=== PATIENT | female | born 1945 | race Two or more races ===

== ENCOUNTER 2021-02-15 09:34 | Inpatient (IN) | payer MEDICARE ==
[~2021-02-15] VITALS: Ht 152.4 cm; Wt 62.6 kg
[~2021-02-15 09:34] MED LIST: ALPR0.254 PO; AMIT10TA8 PO; BACL10TA PO; FURO20TA3 PO; GABA-339 PO; LEVO88TA4 PO; MELO1TAB73 PO; MONT5CHW23 PO; VALS160T43 PO
[2021-02-15] MEDS ORDERED: ONDANSETRON HCL 4 MG/2 ML VIAL IV ONE (11:15)
[2021-02-15] MEDS ORDERED: MORPHINE SULFATE 4 MG/ML SYR/VIAL IV ONE (11:15)
[2021-02-15 12:06] LABS: Basophils # (auto) 0 10 ^3/uL (0-0.2); Basophils % (auto) 0.5 % (0.0-2.0); Eosinophils # (auto) 0.1 10 ^3/uL (0-0.8); Eosinophils % (auto) 0.8 % (0.0-7.0); Hematocrit 41.2 % (36.0-46.0); Hemoglobin 13.8 g/dL (12.2-16.2); Lymphocytes # (auto) 1.9 10 ^3/uL (0.4-5.4); Lymphocytes % (auto) 18.3 % (10.0-50.0); Mean Corpuscular Hemoglobin 32.2 pg (28.0-32.0); Mean Corpuscular Hgb Conc. 33.4 g/dL (32.0-36.0); Mean Corpuscular Volume 96.3 fL (80.0-100.0); Monocytes # (auto) 0.8 10 ^3/uL (0-1.3); Monocytes % (auto) 7.6 % (0.0-12.0); Neutrophils # (auto) 7.4 10 ^3/uL (1.6-8.6); Neutrophils % (auto) 72.8 % (37.0-80.0); Nucleated Red Blood Cells % 0.1 %; Red Blood Cells 4.28 10^6/uL (4.0-5.20); Red Cell Distribution Width 12.8 % (11.8-14.3); White Blood Cell 10.1 10^3/uL (4.4-10.8)
[2021-02-15 12:07] LABS: Chloride 104 mmol/L (98-107); Potassium 5.1 mmol/L (3.5-5.1); Sodium 134 mmol/L (136-145)
[2021-02-15 12:23] LABS: Alanine Aminotransferase 32 U/L (13-56); Albumin 3.2 g/dL (3.4-5.0); Alkaline Phosphatase 108 U/L (45-117); Anion Gap 6 (5-15); Aspartate Aminotransferase 36 U/L (15-37); BUN/Creatinine Ratio 15.4; Bilirubin, Total 0.7 mg/dL (0.2-1.0); Blood Urea Nitrogen 8 mg/dL (7-18); Calcium 8.8 mg/dL (8.5-10.1); Carbon Dioxide 24 mmol/L (21-32); GFR African American 148 mL/min; GFR Non-African American 123 mL/min; Glucose 80 mg/dL (74-106); Total Protein 6.9 g/dL (6.4-8.2)
[2021-02-15] MEDS ORDERED: ACETAMINOPHEN 325 MG TAB PO PRN (21:15)
[2021-02-15] MEDS ORDERED: ONDANSETRON HCL 4 MG/2 ML VIAL IV PRN (21:15)
[2021-02-15] MEDS: GABAPENTIN 300 MG CAP PO SCH (23:35)
[2021-02-15] MEDS: AMITRIPTYLINE HCL 25 MG TAB PO SCH (23:35)
[2021-02-16] MEDS: HYDROcodone-ACET 5/325MG TAB PO PRN ×2 (06:35→19:51)
[2021-02-16 06:45] LABS: BUN/Creatinine Ratio 20.8; Calcium 8.6 mg/dL (8.5-10.1); Potassium 3.3 mmol/L (3.5-5.1)
[2021-02-16 09:30] VITALS: BP 137/72
[2021-02-16] MEDS: LOSARTAN POTASSIUM 25 MG TAB PO SCH (09:43)
[2021-02-16] MEDS: GABAPENTIN 300 MG CAP PO SCH ×2 (09:44→22:43)
[2021-02-16] MEDS ORDERED: ENOXAPARIN SOD 40 MG/0.4 ML SYRINGE SC SCH (10:00)
[2021-02-16] MEDS: FUROSEMIDE 20 MG TAB PO SCH (10:00)
[2021-02-16] MEDS: LEVOTHYROXINE SODIUM 88 MCG TAB PO SCH (10:39)
[2021-02-16] MEDS ORDERED: KETOROLAC TROMETH 30 MG/ML 1ML VIAL IV ONE (11:30)
[2021-02-16] MEDS ORDERED: POTASSIUM CHL 20 Meq TABLET PO ONE (11:30)
[2021-02-16 12:30] VITALS: BP 125/61
[2021-02-16 12:39] LABS: Urine Bacteria FEW /hpf (None Seen); Urine Blood Negative /uL (Negative); Urine Mucus FEW (None Seen); Urine Specific Gravity 1.023 (1.001-1.035); Urine WBC 2 /hpf (0 - 5)
[2021-02-16 17:00] VITALS: BP 103/65
[2021-02-16 22:00] VITALS: BP 105/52
[2021-02-16] MEDS: MONTELUKAST SODIUM 10 MG TAB PO SCH (22:43)
[2021-02-16] MEDS: AMITRIPTYLINE HCL 25 MG TAB PO SCH (22:43)
[2021-02-17] MEDS: TEMAZEPAM 15 MG CAP PO PRN ×2 (00:23→23:43)
[2021-02-17] MEDS: HYDROcodone-ACET 5/325MG TAB PO PRN ×2 (01:41→08:22)
[2021-02-17 05:00] VITALS: BP 117/68
[2021-02-17 06:17] LABS: Potassium 4.1 mmol/L (3.5-5.1)
[2021-02-17] MEDS: LEVOTHYROXINE SODIUM 88 MCG TAB PO SCH (06:17)
[2021-02-17 06:24] LABS: BUN/Creatinine Ratio 28.9; Calcium 8.4 mg/dL (8.5-10.1)
[2021-02-17] MEDS: GABAPENTIN 300 MG CAP PO SCH ×2 (08:20→21:51)
[2021-02-17] MEDS: FUROSEMIDE 20 MG TAB PO SCH (08:21)
[2021-02-17] MEDS: LOSARTAN POTASSIUM 25 MG TAB PO SCH (08:25)
[2021-02-17 09:11] VITALS: BP 95/58
[2021-02-17 09:12] VITALS: BP 121/61
[2021-02-17 13:00] VITALS: BP 106/57
[2021-02-17] MEDS: CIPROFLOXACIN 0.3%OPTH(EYE) SOL 5ML LEFTEYE SCH ×3 (14:35→21:51)
[2021-02-17] MEDS: KETOROLAC TROMETH 30 MG/ML 1ML VIAL IV SCH ×2 (14:36→21:51)
[2021-02-17] MEDS: traMADol HCL 50 MG TAB PO PRN ×2 (14:37→23:44)
[2021-02-17 16:36] VITALS: BP 114/61
[2021-02-17] MEDS: AMITRIPTYLINE HCL 25 MG TAB PO SCH (21:50)
[2021-02-17] MEDS: MONTELUKAST SODIUM 10 MG TAB PO SCH (21:52)
[2021-02-17 22:00] VITALS: BP 118/60
[2021-02-18] MEDS: CIPROFLOXACIN 0.3%OPTH(EYE) SOL 5ML LEFTEYE SCH ×5 (02:24→17:30)
[2021-02-18 05:00] VITALS: BP 116/60
[2021-02-18] MEDS: LEVOTHYROXINE SODIUM 88 MCG TAB PO SCH (06:09)
[2021-02-18] MEDS: KETOROLAC TROMETH 30 MG/ML 1ML VIAL IV SCH ×2 (06:09→13:08)
[2021-02-18] MEDS: traMADol HCL 50 MG TAB PO PRN ×2 (08:25→17:31)
[2021-02-18] MEDS: GABAPENTIN 300 MG CAP PO SCH (08:25)
[2021-02-18] MEDS: LOSARTAN POTASSIUM 25 MG TAB PO SCH (08:26)
[2021-02-18 09:09] VITALS: BP 129/75
[2021-02-18] MEDS: FUROSEMIDE 20 MG TAB PO SCH (10:02)
[2021-02-18] MEDS ORDERED: DOCUSATE SOD 100 MG CAP PO SCH (10:27)
[2021-02-18 12:43] VITALS: BP_SYST 132; BP_SYST 97; BP_DIAS 46; BP_DIAS 77
[2021-02-18 16:54] VITALS: BP 136/73
[2021-02-18 17:59] VITALS: BP 129/75
== END 2021-02-18 19:02 | DRG 552 ==
LOC: EDBD 09:34 → ER 09:34 → OVERFLOW 21:10 → CENTRAL 02-16 08:23
PROVIDERS: ADMIT Nurse Practitioner; ATTEND Internal Medicine
DX: M48.061 Spinal stenosis, lumbar region without neurogenic claudication (principal); M17.12 Unilateral primary osteoarthritis, left knee; G89.4 Chronic pain syndrome; I10 Essential (primary) hypertension; E03.9 Hypothyroidism, unspecified; Z20.822 Contact with and (suspected) exposure to COVID-19; E11.9 Type 2 diabetes mellitus without complications; E78.5 Hyperlipidemia, unspecified; F20.9 Schizophrenia, unspecified; Z82.0 Family history of epilepsy and other diseases of the nervous system; Z80.6 Family history of leukemia; Z98.1 Arthrodesis status; Z90.49 Acquired absence of other specified parts of digestive tract
CPT/HCPCS: 36415; 71045; 72131; 73562; 80048; 80053; 81001; 84443; 84484; 85025; 87081; 87426; 93005; 96374; 96375; 97110; 97116; 97163; 97530; G0378; J1885; J2405

== ENCOUNTER 2021-06-04 17:46 | Emergency (ER) | payer MEDICARE, OTHER ==
[~2021-06-04] VITALS: Ht 152.4 cm; Wt 49.9 kg
[2021-06-04 20:33] LABS: Albumin 4.1 g/dL (3.4-5.0); Calcium 9.5 mg/dL (8.5-10.1); Potassium 4.5 mmol/L (3.5-5.1)
[2021-06-04 20:37] LABS: BUN/Creatinine Ratio 21.4; Bilirubin, Total 0.5 mg/dL (0.2-1.0)
[2021-06-04 21:00] LABS: Basophils # (auto) 0.1 10 ^3/uL (0-0.2); Basophils % (auto) 1.1 % (0.0-2.0); Eosinophils # (auto) 0.2 10 ^3/uL (0-0.8); Hematocrit 46.9 % (36.0-46.0); Hemoglobin 15.7 g/dL (12.2-16.2); Lymphocytes # (auto) 2.3 10 ^3/uL (0.4-5.4); Lymphocytes % (auto) 25.3 % (10.0-50.0); Mean Corpuscular Hemoglobin 31.3 pg (28.0-32.0); Mean Corpuscular Hgb Conc. 33.4 g/dL (32.0-36.0); Mean Corpuscular Volume 93.6 fL (80.0-100.0); Monocytes # (auto) 0.5 10 ^3/uL (0-1.3); Monocytes % (auto) 5.9 % (0.0-12.0); Neutrophils # (auto) 5.9 10 ^3/uL (1.6-8.6); Neutrophils % (auto) 65.7 % (37.0-80.0); Nucleated Red Blood Cells % 0.2 %; Red Blood Cells 5.01 10^6/uL (4.0-5.20); Red Cell Distribution Width 13.1 % (11.8-14.3)
[2021-06-05 14:14] VITALS: BP 120/75
== END 2021-06-05 15:41 | disposition home or self-care (01) ==
LOC: EDBD 17:46 → ER 18:14
DX: R56.9 Unspecified convulsions (principal); R51.9 Headache, unspecified; R53.1 Weakness; E11.9 Type 2 diabetes mellitus without complications; E78.5 Hyperlipidemia, unspecified; Z90.49 Acquired absence of other specified parts of digestive tract
CPT/HCPCS: 36415; 70450; 71045; 80053; 84443; 85025; 93005